=== PATIENT | female | born 1960 | race Caucasian/White ===

== ENCOUNTER 2024-08-24 10:35 | Emergency (ER) | payer OTHER, MEDICAID ==
[~2024-08-24] VITALS: Ht 170.2 cm; Wt 63.6 kg
--- NOTE | 2024-08-24 11:04 | ED.PDOC ---
History of Present Illness HPI Comments 64-year-old female who comes in with chief complaint of generalized weakness with headache and dizziness. The patient states that she recently moved from [place] and arrived last Saturday. While she was home on , the patient then had a tonic-clonic seizure. She was taken to [facility] and kept there for approximately four days. The patient was noncompliant with her Depakote because she did not have any medication. The patient was then sent home. She states that her last seizure was back in 2011. She got home and then this morning she got dizzy and then developed a frontal headache and some generalized weakness. She states that the headache is an 8/10. There has been no fever, chills or trauma. The patient states that the vital signs are within normal limits. Chief Complaint: Dizziness Time Seen by MD: 10:42 Primary Care Provider: CARL Reviewed Notes: Nurses Notes, Business Analytics Director Notes, Medications, Allergies (No allergies to medications) Allergies: Coded Allergies: NO KNOWN ALLERGIES (Unverified , 08/24/24) Information Source: Patient, Emergency Med Personnel Mode of Arrival: EMS Severity: Moderate Timing: Hours Duration: Since onset Prehospital treatment: Accucheck (92), Supervisor Channel Process Location: Frontal headache with dizziness and weakness Associated signs and symptoms There has been no nausea or vomiting Past Medical History PAST MEDICAL HISTORY: HTN, Schizophrenia Past Medical History (Other): Bipolar disorder, hypoglycemia, thrombocytopenia Surgical History: , Hysterectomy Surgical History (Other): Right arm surgery FBI SHARPSHOOTER History: No Pertinent FBI SHARPSHOOTER History Family History Family History: No family hx of DM, No family hx of Heart serg, Family hx of Cancer Social History Smoker: Cigarettes Alcohol: Denies ETOH Use, Occasionally Drugs: Marijuana Lives In: Home Constitutional: reports: weakness; denies: chills, diaphoresis, fatigue, fever, malaise, sweats, others EENTM: denies: blurred vision, double vision, ear bleeding, ear discharge, ear drainage, ear pain, ear ringing, eye pain, eye redness, hearing loss, mouth pain, mouth swelling, nasal discharge, nose bleeding, nose congestion, nose pain, photophobia, tearing, throat pain, throat swelling, voice changes, others Respiratory: denies: cough, hemoptysis, orthopnea, SOB at rest, shortness of breath, SOB with excertion, stridor, wheezing, others Cardiovascular: denies: chest pain, dizzy spells, diaphoresis, Dyspnea on exert ion, edema, irregular heart beat, left arm pain, lightheadedness, palpitations, PND, syncope, others Gastrointestinal: denies: abdomen distended, abdominal pain, blood streaked bowels, constipated, diarrhea, dysphagia, difficulty swallowing, hematemesis, melena, nausea, poor appetite, poor fluid intake, rectal bleeding, rectal pain, vomiting, others Genitourinary: denies: abnormal vagina bleeding, burning, dyspareunia, dysuria, flank pain, frequency, hematuria, incontinence, pain, , vagina discharge, urgency, others Neurological: reports: dizziness, headache, seizure; denies: fainting, left sided numbness, left sided weakness, numbness, paresthesia, pre-existing deficit, right sided numbness, right sided weakness, speech problems, tingling, tremors, weakness, others Musculoskeletal: denies: back pain, gout, joint pain, joint swelling, muscle pain, muscle stiffness, neck pain, others Integumetry: denies: bruises, change in color, change in hair/nails, dryness, laceration, lesions, lumps, rash, wounds, others Allergic/Immunocompromised: denies: Difficulty Healing, Frequent Infections, Hives, Itching, others Hematologic/Lymphatic: denies: anemia, blood clots, easy bleeding, easy bruising, swollen glands, others Endocrine: denies: excessive hunger, excessive sweating, excessive thirst, excessive urination, flushing, intolerance to cold, intolerance to heat, unexplained weight gain, unexplained weight loss, others Psychiatric: denies: anxiety, bipolar disorder, depression, hopeless, panic disorder, schizophrenia, sleepless, suicidal, others Physical Exam General Appearance: Mild Distress HEENT: Pale Conjuntivae (L), Pale Conjuntivae (R), Pharynx Normal, TMs Normal Neck: Full Range of Motion, Non-Tender, Normal, Normal Inspection Respiratory: Chest Non-Tender, Lungs Clear, No Accessory Muscle Use, No Respiratory Distress, Normal Breath Sounds Cardiovascular: No Edema, No JVD, No Murmur, No Gallop, Normal Peripheral Pulses, Regular Rate/Rhythm Breast Exam: Deferred Gastrointestinal: No Organomegaly, Non Tender, No Pulsatile Mass, Normal Bowel Sounds, Soft Genitalia: Deferred Pelvic: Deferred Rectal: Deferred Extremities: No calf tenderness, Normal capillary refill, Normal inspection, Normal range of motion, Non-tender, No pedal edema Musculoskeletal : Apperance: Normal Neurologic: Alert, catapult and arresting gear officer II-XII nml as Tested, Motor Weakness, Normal Affect, No Sensory Deficits Cerebellar Function: Normal Reflexes: Normal Skin: Dry, Normal Color, Warm Lymphatic: No Adenopathy Was a procedure done? Was a procedure done?: No Differential Dx Considerations may include: Generalized weakness, electrolyte imbalance X-Ray, Labs, Meds, VS Vital Signs Date Time Temp Pulse Resp B/P (MAP) Pulse Ox O2 Delivery O2 Flow Rate FiO2 08/24/24 14:14 98.3 69 20 115/67 (83) 96 98.3 08/24/24 13:07 107/70 08/24/24 12:39 87 16 161/114 (130) 96 08/24/24 12:38 161/114 08/24/24 11:41 155/106 08/24/24 11:30 98.2 76 18 155/106 (122) 93 98.2 08/24/24 11:30 76 19 93 Room Air* 0 21 08/24/24 10:39 75 08/24/24 10:36 97.8 87 16 120/85 (97) 100 97.8 Lab Test 08/24/24 11:33 Range/Units White Blood Count 4.6 4.4-10.8 10^3/uL Red Blood Count 4.32 4.0-5.20 10^6/uL Hemoglobin 15.4 12.2-16.2 g/dL Hematocrit 43.2 36.0-46.0 % Mean Corpuscular Volume 100.1 H 80.0-100.0 fL Mean Corpuscular Hemoglobin 35.6 H 28.0-32.0 pg Mean Corpuscular Hemoglobin Concent 35.5 32.0-36.0 g/dL Red Cell Distribution Width 12.9 11.8-14.3 % Platelet Count 133 L 140-450 10^3/uL Mean Platelet Volume 10.1 6.9-10.8 fL Neutrophils (%) (Auto) 40.5 37.0-80.0 % Lymphocytes (%) (Auto) 51.3 H 10.0-50.0 % Monocytes (%) (Auto) 7.1 0.0-12.0 % Eosinophils (%) (Auto) 0.7 0.0-7.0 % Basophils (%) (Auto) 0.4 0.0-2.0 % Neutrophils # (Auto) 1.8 1.6-8.6 10 ^3/uL Lymphocytes # (Auto) 2.3 0.4-5.4 10 ^3/uL Monocytes # (Auto) 0.3 0-1.3 10 ^3/uL Eosinophils # (Auto) 0 0-0.8 10 ^3/uL Basophils # (Auto) 0 0-0.2 10 ^3/uL Nucleated Red Blood Cells 0.1 % Sodium Level 137 136-145 mmol/L Potassium Level 4.3 3.5-5.1 mmol/L Chloride Level 101 98-107 mmol/L Carbon Dioxide Level 28 20-31 mmol/L Anion Gap 8 5-15 Blood Urea Nitrogen 15 9-23 mg/dL Creatinine 0.82 0.550-1.02 mg/dL Glomerular Filtration Rate Calc 79 >90 mL/min BUN/Creatinine Ratio 18.3 10.0-20.0 Serum Glucose 87 74-106 mg/dL Calcium Level 11.0 H 8.7-10.4 mg/dL Current Medications Medications (Trade) Dose Ordered Sig/Elisabeth Route Start Time Stop Time Status Last Admin Sodium Chloride 500 ml @ 500 mls/hr Q1H ONCE IV 08/24/24 11:00 08/24/24 11:59 DC 08/24/24 11:42 Clonidine HCl (Catapres Tablet) 0.2 mg ONCE ONCE PO 08/24/24 11:30 08/24/24 11:31 DC 08/24/24 11:41 CT HEAD WITHOUT CONTRAST IMPRESSION: 1. No evidence of acute intracranial hemorrhage, mass effect or hydrocephalus. IV Hep-Lock was established The patient was given normal saline as a bolus This time, the patient's CBC is within normal limits The chemistry panel is within normal limits The patient was given clonidine 0.2 mg by mouth At this time, the patient was being discharged and will follow up with the primary care doctor We did call All authorization for treatment The authorization #[id number] The patient was discharged Images Reviewed?: Images reviewed and evaluated by me Time of 1ST Reevaluation: 11:14 Reevaluation 1ST: Unchanged Patient Education/Counseling: Diagnosis, Treatment, Prognosis Family Education/Counseling: No Family Present Departure 1 Departure Time of Disposition: 15:51 Impression: Primary Impression: Hypertensive urgency Disposition: 01 HOME / SELF CARE / HOMELESS Condition: Fair Discharged With: Self Critical Care Note Critical Care Time?: No Stability Stability form required: No Heart Score Heart Score: Heart Score Response (Comments) Value History N/A 0 EKG N/A 0 Age N/A 0 Risk Factors N/A 0 Troponin N/A 0 Total 0 I personally scribed for NAREN MENA MD ([email or web address]) on 08/24/24 at 12:03. Electronically submitted by Feleica Salguero ([facility]). NAREN MENA MD Aug 24, 2024 11:04
--- NOTE | 2024-08-24 11:22 | ECG ---
[facility] Test Date: 2024-08-24 Test Time: 10:39:02 Pat Name: ADI BLANC Department: ED Room: Gender: F City Letter Carrier: billy : 1960 Requested By: NAREN MENA Order Number: [id number] Reading MD: Luis Ramirez Measurements Intervals [place] Rate: 75 P: 64 MT: 147 QRS: -64 QRSD: 86 T: 59 QT: 377 QTc: 421 Interpretive Statements Sinus rhythm Left anterior fascicular block Electronically Signed On 08-27-2024 20:38:59 PDT by Luis Ramirez Please click the below link to view image of tracing.
--- NOTE | 2024-08-24 11:27 | DVH ---
CT HEAD WITHOUT CONTRAST INDICATION: MORGAN COMPARISON: None TECHNIQUE: CT of the head without intravenous contrast. RADIATION DOSE: CTDIvol: 55 mGy, DLP: 1082 mGy*cm FINDINGS: There is no evidence of acute intracranial hemorrhage, extra-axial collection, mass effect, midline s hift, herniation or hydrocephalus. The ventricles, sulci and cisterns are age appropriate. The fernandes -white differentiation is intact. The visualized paranasal sinuses and mastoid air cells are clear. The surrounding soft tissues and osseous structures are unremarkable. IMPRESSION: 1. No evidence of acute intracranial hemorrhage, mass effect or hydrocephalus.
[2024-08-24 11:30] VITALS: PULSE 76; RESP 19; O2SAT 93
[2024-08-24] MEDS: cloNIDine HCL 0.1 MG TAB PO ONE (11:41)
[2024-08-24] MEDS: SODIUM CHLORIDE 0.9% 500 ML IV ONE (11:42)
[2024-08-24 12:00] LABS: Chloride 101 mmol/L (98-107); Potassium 4.3 mmol/L (3.5-5.1); Sodium 137 mmol/L (136-145)
[2024-08-24 12:01] LABS: Anion Gap 8 (5-15); Carbon Dioxide 28 mmol/L (20-31)
[2024-08-24 12:06] LABS: BUN/Creatinine Ratio 18.3 (10.0-20.0); Blood Urea Nitrogen 15 mg/dL (9-23); Glucose 87 mg/dL (74-106)
[2024-08-24 12:08] LABS: Basophils # (auto) 0 10 ^3/uL (0-0.2); Basophils % (auto) 0.4 % (0.0-2.0); Eosinophils # (auto) 0 10 ^3/uL (0-0.8); Eosinophils % (auto) 0.7 % (0.0-7.0); Hematocrit 43.2 % (36.0-46.0); Hemoglobin 15.4 g/dL (12.2-16.2); Lymphocytes # (auto) 2.3 10 ^3/uL (0.4-5.4); Lymphocytes % (auto) 51.3 % (10.0-50.0); Mean Corpuscular Hemoglobin 35.6 pg (28.0-32.0); Mean Corpuscular Hgb Conc. 35.5 g/dL (32.0-36.0); Mean Corpuscular Volume 100.1 fL (80.0-100.0); Monocytes # (auto) 0.3 10 ^3/uL (0-1.3); Monocytes % (auto) 7.1 % (0.0-12.0); Neutrophils # (auto) 1.8 10 ^3/uL (1.6-8.6); Neutrophils % (auto) 40.5 % (37.0-80.0); Nucleated Red Blood Cells % 0.1 %; Platelet Count (auto) 133 10^3/uL (140-450); Red Blood Cells 4.32 10^6/uL (4.0-5.20); Red Cell Distribution Width 12.9 % (11.8-14.3); White Blood Cell 4.6 10^3/uL (4.4-10.8)
[2024-08-24] MEDS: amLODIPine BESYLATE 5 MG TAB PO ONE (13:07)
[2024-08-24 14:14] VITALS: TEMP 98.3
[2024-08-24 16:14] VITALS: BP 106/61; PULSE 67; RESP 17; O2SAT 97
== END 2024-08-24 16:23 | disposition home or self-care (01) ==
LOC: EDBD 10:35 → ER 10:35
DX: I16.0 Hypertensive urgency (principal); F20.9 Schizophrenia, unspecified; F31.9 Bipolar disorder, unspecified; F17.210 Nicotine dependence, cigarettes, uncomplicated; Z90.710 Acquired absence of both cervix and uterus; Z98.890 Other specified postprocedural states
CPT/HCPCS: 36415; 70450; 80048; 82947; 85025; 93005; 99285; J7040; 96360

== ENCOUNTER 2024-09-23 00:15 | Emergency (ER) | payer OTHER, MEDICAID ==
[~2024-09-23] VITALS: Ht 167.6 cm; Wt 77.1 kg
--- NOTE | 2024-09-23 00:33 | ED.PDOC ---
History of Present Illness HPI Comments 64-year-old female with PMHx Schizophrenia brought in by EMS presents with a chief complaint of "feeling weird". Patient has rambling speech and stating that she has chest discomfort, headache, palpitations, and feeling weird. Patient is requesting Benadryl or Ativan to "calm me down", but also states that she took an extra dose of her medications tonight with Trazodone. Chief Complaint: Headache Time Seen by MD: 00:23 Primary Care Provider: CARL Maldonado Notes: Medications, Allergies Allergies: Coded Allergies: Metronidazole (Verified Allergy, Unknown, 09/23/24) Morphine (Verified Allergy, Unknown, 09/23/24) Information Source: Patient, Emergency Med Personnel Mode of Arrival: EMS Severity: Moderate Timing: Minutes Duration: Since onset Prehospital treatment: Reliability Specialist Vital Signs Vital Signs Date Time Temp Pulse Resp B/P (MAP) Pulse Ox O2 Delivery O2 Flow Rate FiO2 09/23/24 02:20 97.5 102 20 158/103 (121) 98 97.5 09/23/24 02:20 Room Air Physical Exam General: Awake, alert and oriented. No acute distress. Skin: Skin in warm, dry and intact. Appropriate color for ethnicity. HEENT: The head is normocephalic and atraumatic. Conjunctivae are clear without exudates or hemorrhage. Sclera is non-icteric. EOM are intact. No signs of nystagmus. Eyelids are normal in appearance without swelling or lesions. Oral mucosa is pink and moist Neck: The neck is supple with normal range of motion. No JVD. Cardiac: Heart rate and rhythm are normal. No murmurs, gallops, or rubs are auscultated. Respiratory: No signs of respiratory distress. Lung sounds are clear in all lobes bilaterally without rales, rhonchi, or wheezes. Abdominal: Abdomen is soft, non-tender without distention. Bowel sounds are present and normoactive in all four quadrants. Extremities: Upper and lower extremities are atraumatic in appearance without deformity or edema. Neurological: The patient is awake, alert and oriented to person, place, and time with normal speech. Speech is clear. There is no facial asymmetry. Psychiatric: Appropriate mood and affect. Good judgement and insight. Review of Systems: REVIEW OF SYSTEMS: No fever, no chills, or fatigue HEENT: No sore throat, no earache, no congestion, no neck pain. Cardiac: No chest pain. No palpitations. Lungs: No shortness of breath, no cough. GI: No nausea, no vomiting, no diarrhea, no constipation, no abdominal pain : No dysuria, frequency, or urgency. No hematuria. Musculoskeletal: No joint pain , no joint swelling, no extremity edema. Skin: No rash, no itching. 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 Was a procedure done?: No EKG EKG : Pulse Rate (adult): 98 [place]: RAD Cardiac Rhythm: NSR Block: None Hypertrophy: LAE ST: Normal Comments No STEMI QTC 460, QRS D 95 X-Ray, Labs, Meds, VS Vital Signs Date Time Temp Pulse Resp B/P (MAP) Pulse Ox O2 Delivery O2 Flow Rate FiO2 09/23/24 02:20 97.5 102 20 158/103 (121) 98 97.5 09/23/24 02:20 102 20 98 Room Air 09/23/24 01:57 98 09/23/24 01:48 98 09/23/24 00:30 97.5 102 18 162/94 (116) 98 97.5 Lab Test 09/23/24 01:40 Range/Units Urine Opiates Screen Pending Urine Fentanyl Screen Pending Urine Barbiturates Screen Pending Urine Phencyclidine Screen Pending Urine Amphetamines Screen Pending Urine Benzodiazepines Screen Pending Urine Cocaine Screen Pending Urine Cannabinoids Screen Pending Time of 1ST Reevaluation: 00:53 Reevaluation 1ST: Unchanged Patient Education/Counseling: Need For Follow Up Departure 1 Departure Time of Disposition: 02:26 Impression: Primary Impression: Accidental medication overdose Disposition: 01 HOME / SELF CARE / HOMELESS Condition: Stable Additional Instructions: ED DISCHARGE INSTRUCTIONS Instructions: Please read all instructions provided in this packet carefully. Although you have been discharged from the Emergency Department, this does not mean that you have a "clean bill of health". No definitive diagnosis for your symptoms has been made today. It is possible that you are in the process of developing a serious illness. This is why you must return to the ED without fail if any new or worsening symptoms (especially if your symptoms include chest pain, trouble breathing, abdominal pain, fever, headache, confusion, trouble seeing, or trouble walking) It is also very important that you see a primary care doctor within the next 3-5 days to follow up. If you are unable to get an appointment, return to the ED for re-evaluation. Comments 64-year-old female who presents to the emergency department with accidental medication overdose. Patient took an extra dose of her evening medications. Poison control was consulted ( ). Recommendation was 3 hour observation post ingestion time. EKG shows normal QRS duration and QTC duration. Patient is felt stable for discharge home to follow up with primary care provider. Advised to return with any new, worsening or concerning symptoms. Critical Care Note Critical Care Time?: No Stability Stability form required: No Heart Score Heart Score: Heart Score Response (Comments) Value History N/A 0 EKG N/A 0 Age N/A 0 Risk Factors N/A 0 Troponin N/A 0 Total 0 I personally scribed for GUILLERMO BUI MD ([email or web address]) on 09/23/24 at 00:33. Electronically submitted by Parker Viveros ([email or web address]). I personally scribed for GUILLERMO BUI MD ([email or web address]) on 09/23/24 at 01:57. Electronically submitted by Parker Viveros ([email or web address]). GUILLERMO BUI MD September 23, 2024 00:33
--- NOTE | 2024-09-23 01:50 | ECG ---
[facility] Test Date: 2024-09-23 Test Time: 01:48:41 Pat Name: ADI BLANC Department: ED Room: Gender: F Paper And Pulp Mill Operator: : 1960 Requested By: GUILLERMO BUI Order Number: [id number] Reading MD: Luis Ramirez Measurements Intervals [place] Rate: 98 P: 66 [place]: 140 QRS: 104 QRSD: 95 T: 24 QT: 360 QTc: 460 Interpretive Statements Sinus rhythm Left atrial enlargement Right axis deviation Electronically Signed On 09-24-2024 21:13:35 PDT by Luis Ramirez Please click the below link to view image of tracing.
[2024-09-23 02:20] VITALS: TEMP 97.5
[2024-09-23 02:42] LABS: Amphetamine Screen, Urine Neg (NEGATIVE); Barbiturate Scree,Urine Neg (NEGATIVE); Benzodiazephine Screen, Urine Neg (NEGATIVE); Cannabinoid Screen, Urine Neg (NEGATIVE); Cocaine Screen, Urine Neg (NEGATIVE); Opiate Scree,Urine Neg (NEGATIVE); Phencyclidine Screen, Urine Neg (NEGATIVE)
[2024-09-23] MEDS: cloNIDine HCL 0.1 MG TAB PO ONE (03:10)
[2024-09-23 03:35] VITALS: BP 148/95; PULSE 92; RESP 20; O2SAT 95
== END 2024-09-23 04:17 | disposition home or self-care (01) ==
LOC: ER 00:15 → EDBD 00:15 → ER 04:17
DX: T50.901A Poisoning by unspecified drugs, medicaments and biological substances, accidental (unintentional), initial encounter (principal); I10 Essential (primary) hypertension; F20.9 Schizophrenia, unspecified; F17.210 Nicotine dependence, cigarettes, uncomplicated; Z90.710 Acquired absence of both cervix and uterus; Z88.1 Allergy status to other antibiotic agents; Z88.5 Allergy status to narcotic agent; Y92.89 Other specified places as the place of occurrence of the external cause
CPT/HCPCS: 80307; 93005

== ENCOUNTER 2025-05-17 21:18 | Emergency (ER) | payer OTHER, MEDICAID ==
[~2025-05-17] VITALS: Ht 167.6 cm; Wt 83.0 kg
[2025-05-17 21:23] VITALS: BP 155/82; PULSE 94; RESP 18; TEMP 98.4; O2SAT 99
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
== END 2025-05-18 01:22 | disposition home or self-care (01) ==
LOC: ER 21:18 → EDBD 21:18 → EDUNIT# 21:18 → ER 05-18 01:07
DX: F43.25 Adjustment disorder with mixed disturbance of emotions and conduct (principal); F10.10 Alcohol abuse, uncomplicated; F20.9 Schizophrenia, unspecified; F17.210 Nicotine dependence, cigarettes, uncomplicated; I10 Essential (primary) hypertension; Z02.89 Encounter for other administrative examinations; Z88.1 Allergy status to other antibiotic agents; Z88.5 Allergy status to narcotic agent; Z90.710 Acquired absence of both cervix and uterus; Y90.9 Presence of alcohol in blood, level not specified